=== PATIENT | male | born 1980 | race Caucasian/White ===

== ENCOUNTER 2016-05-30 13:56 | Emergency (ER) | payer BC ==
[~2016-05-30] VITALS: Ht 175.3 cm; Wt 180.0 kg
[2016-05-30 13:58] VITALS: BP 135/84; PULSE 102; RESP 15; TEMP 98.2; O2SAT 98
[2016-05-30] MEDS ORDERED: XANA0.5T2 PO (14:15)
[2016-05-30] MEDS ORDERED: LACTCAP8 PO (14:15)
[2016-05-30] MEDS ORDERED: WELL200T PO (14:15)
[2016-05-30] MEDS ORDERED: SODIUM CHLOR 0.9% 1000 ML INJ 1,000 ML IV SCH (14:34)
[2016-05-30] MEDS ORDERED: ONDANSETRON HCL 4 MG/2 ML VIAL IV PUSH ONE ×2 (15:00→16:15)
[2016-05-30] MEDS ORDERED: MORPHINE SULFATE 4 MG/ML INJ IV PUSH ONE (15:00)
[2016-05-30 15:04] LABS: AUTOMATED NEUTROPHIL # 4.4 TH/MM3 (1.8-7.7); BASOPHIL # 0.1 TH/MM3 (0-0.2); BASOPHIL % 1.3 % (0.0-2.0); EOSINOPHIL # 0.2 TH/MM3 (0-0.4); EOSINOPHIL % 2.8 % (0.0-4.0); HEMATOCRIT 44.6 % (39.0-51.0); HEMO FLAGS DIFF FINAL; LYMPH % 26.7 % (9.0-44.0); LYMPHOCYTE # 1.9 TH/MM3 (1.0-4.8); MEAN CELL VOLUME 87.3 FL (80.0-100.0); MEAN CORPUSCULAR HEMOGLOBIN 29.6 PG (27.0-34.0); MEAN CORPUSCULAR HGB CONC 33.9 % (32.0-36.0); MONO % 8.1 % (0.0-8.0); NEUT % 61.1 % (16.0-70.0); PLATELET COUNT 285 TH/MM3 (150-450); RED BLOOD COUNT 5.11 MIL/MM3 (4.50-5.90); RED CELL DISTRIBUTION WIDTH 13.9 % (11.6-17.2); WHITE BLOOD COUNT 7.2 TH/MM3 (4.0-11.0)
[2016-05-30 15:07] VITALS: BP 130/71; PULSE 87; RESP 18; O2SAT 100
[2016-05-30 15:25] LABS: BLOOD, URINE MOD (NEG); COMMENT (UR) CULT NOT INDICATED; CULTURE IF INDICATED CULT NOT INDICATED; GLUCOSE,URINE NEG (NEG); KETONE, URINE NEG (NEG); MUCUS URINE FEW /lpf (OCC); NITRITE,URINE NEG (NEG); PH, URINE 6.5 (5.0-8.5); URINE COLOR YELLOW (YELLW/STRAW)
--- NOTE | 2016-05-30 15:40 | PD ---
HPI Chief Complaint: GI Complaint Time Seen by Provider: 15:36 Travel History International Travel<30 days: No Contact w/Intl Traveler<30days: No Traveled to known affect area: No History of Present Illness HPI 36-year-old male that presents to the ED for evaluation of left flank pain. Patient has had this for since this morning. Patient had some diarrhea this morning about 3 bowel movements of it however liquidy with no urinary symptoms and he had pain at the time but after a while he started developing this debilitating left flank pain. He denies any history of kidney stones. He denies any surgeries to his abdomen. He does state that he has a week pelvic floor and he has trouble getting urine going. Per patient he has no history of diabetes but he does have a history of anxiety and depression. He states that his pain is 7 out of 10. Allergies to amoxicillin. No chest or shortness of breath. No numbness, tilling, weakness. Per patient the pain is burning and constant. Does not radiate. States mainly in that area. He denies ever having like this before. No nausea or vomiting although he does tell me that he dry heaved a couple times but he couldn't get anything out to symmetrical help with his pain. He has not taken anything for this. He has not seen anybody for this. No fevers chills or sweats. No new foods. No recent travel. PFSH Past Medical History Medical other: Yes (hemmproids) Social History Alcohol Use: No Tobacco Use: No Allergies-Medications (Allergen,Severity, Reaction): Coded Allergies: Amoxicillin (Verified Allergy, Mild, Rash, 05/30/16) Reported Meds & Prescriptions Reported Meds & Active Scripts Active Reported Probiotic (Lactobacillus Acidophilus) 1 Cap Cap 1 Cap PO TIDAC Xanax Xr 24 HR (Alprazolam) 0.5 Mg Tab 0.5 Mg PO DAILY Take tablet intact, preferably in the morning. Wellbutrin SR 12 HR (Bupropion HCl) 200 Mg Tab 300 Mg PO DAILY Review of Systems Except as stated in HPI: all other systems reviewed are Neg Physical Exam Narrative GENERAL: SKIN: Warm and dry. HEAD: Atraumatic. Normocephalic. EYES: Pupils equal and round. No scleral icterus. No injection or drainage. ENT: No nasal bleeding or discharge. Mucous membranes pink and moist. NECK: Trachea midline. No JVD. CARDIOVASCULAR: Regular rate and rhythm. RESPIRATORY: No accessory muscle use. Clear to auscultation. Breath sounds equal bilaterally. GASTROINTESTINAL: Abdomen soft, non-tender, nondistended. Hepatic and splenic margins not palpable. No obvious CVA tenderness. MUSCULOSKELETAL: Extremities without clubbing, cyanosis, or edema. No obvious deformities. Full range of motion of the upper and lower extremities bilaterally. 2+ pulses bilaterally. NEUROLOGICAL: Awake and alert. No obvious cranial nerve deficits. Motor grossly within normal limits. Five out of 5 muscle strength in the arms and legs. Normal speech. PSYCHIATRIC: Appropriate mood and affect; insight and judgment normal. Data Data Last Documented VS Vital Signs Date Time Temp Pulse Resp B/P Pulse Ox O2 Delivery O2 Flow Rate FiO2 05/30/16 16:18 84 18 118/59 100 Room Air 05/30/16 13:58 98.2 Orders Complete Blood Count With Diff (05/30/16 14:34) Comprehensive Metabolic Panel (05/30/16 14:34) Lipase (05/30/16 14:34) Lactic Acid (05/30/16 14:34) Urinalysis - C+S If Indicated (05/30/16 14:34) Iv Access Insert/Monitor (05/30/16 14:34) NPO (05/30/16 14:34) Sodium Chlor 0.9% 1000 Ml Inj (Ns 1000 M (05/30/16 14:34) Morphine Inj (Morphine Inj) (05/30/16 15:00) Ondansetron Inj (Zofran Inj) (05/30/16 15:00) Ct Abd/Pel W Iv Contrast(Rout) (05/30/16 ) Iohexol 350 Inj (Omnipaque 350 Inj) (05/30/16 15:49) Hydromorphone Pf Inj (Dilaudid Pf Inj) (05/30/16 16:15) Ondansetron Inj (Zofran Inj) (05/30/16 16:15) Ketorolac Inj (Toradol Inj) (05/30/16 16:15) Labs Laboratory Tests Test 05/30/16 14:45 White Blood Count 7.2 TH/MM3 Red Blood Count 5.11 MIL/MM3 Hemoglobin 15.1 GM/DL Hematocrit 44.6 % Mean Corpuscular Volume 87.3 FL Mean Corpuscular Hemoglobin 29.6 PG Mean Corpuscular Hemoglobin 33.9 % Concent Red Cell Distribution Width 13.9 % Platelet Count 285 TH/MM3 Mean Platelet Volume 9.2 FL Neutrophils (%) (Auto) 61.1 % Lymphocytes (%) (Auto) 26.7 % Monocytes (%) (Auto) 8.1 % Eosinophils (%) (Auto) 2.8 % Basophils (%) (Auto) 1.3 % Neutrophils # (Auto) 4.4 TH/MM3 Lymphocytes # (Auto) 1.9 TH/MM3 Monocytes # (Auto) 0.6 TH/MM3 Eosinophils # (Auto) 0.2 TH/MM3 Basophils # (Auto) 0.1 TH/MM3 CBC Comment DIFF FINAL Differential Comment Urine Color YELLOW Urine Turbidity CLEAR Urine pH 6.5 Urine Specific Wallace 1.015 Urine Protein NEG mg/dL Urine Glucose (UA) NEG mg/dL Urine Ketones NEG mg/dL Urine Occult Blood MOD Urine Nitrite NEG Urine Bilirubin NEG Urine Urobilinogen LESS THAN 2.0 MG/DL Urine Leukocyte Esterase NEG Urine RBC 15 /hpf Urine WBC 1 /hpf Urine Mucus FEW /lpf Microscopic Urinalysis Comment CULT NOT INDICATED Sodium Level 140 MEQ/L Potassium Level 4.4 MEQ/L Chloride Level 105 MEQ/L Carbon Dioxide Level 27.6 MEQ/L Anion Gap 7 MEQ/L Blood Urea Nitrogen 14 MG/DL Creatinine 0.94 MG/DL Estimat Glomerular Filtration 92 ML/MIN Rate Random Glucose 101 MG/DL Lactic Acid Level 1.2 mmol/L Calcium Level 9.1 MG/DL Total Bilirubin 0.4 MG/DL Aspartate Amino Transf 17 U/L (AST/SGOT) Alanine Aminotransferase 32 U/L (ALT/SGPT) Alkaline Phosphatase 64 U/L Total Protein 7.0 GM/DL Albumin 3.8 GM/DL Lipase 98 U/L [facility] Medical Decision Making Medical Screen Exam Complete: Yes Emergency Medical Condition: Yes Medical Record Reviewed: Yes Interpretation(s) CBC & BMP Diagram 05/30/16 14:45 CT of abdomen showed possible stone on left UVJ UA shows blood LFTs and Lipase WNL Differential Diagnosis Flank pain versus renal colic versus diverticulitis versus gastritis versus gastroenteritis versus muscle strain versus hydronephrosis versus pyelonephritis versus diarrhea Narrative Course 36-year-old male that presents to the ED for evaluation of left flank pain. Patient was properly examined and was found to have signs and symptoms of unclear etiology at this time. Recommend labs and imaging. Patient was given IV pain medications as well as Zofran. Labs and imaging showed kidney stone. Patient was reassured. COunceled on expected course. Case discussed with Dr. Reyes who agrees with discharge and treatment plan. Patient will be given a prescription for Lortab, Zofran, Cipro, Flomax. Patient was told to follow up with PCP. See ED worsening symptoms. Drink plenty of fluids. Diagnosis Primary Impression: Urethral calculus Patient Instructions: General Instructions, Narcotic given in the ED Additional Instructions: Take medications as prescribed. Follow-up with PCP. See ED for any worsening symptoms. Do not drink or drive while taking pain medication. Apply ice or heat as needed for pain Med/Other Pt SpecificInfo: Prescription(s) given Scripts Ciprofloxacin (Cipro)500 Mg [id number] Mg PO BID 7 Days Ref 0 Prov:Maicol Reyes MD 05/30/16 Tamsulosin (Flomax)0.4 Mg Cap0.4 Mg PO HS #30 CAP Ref 0 Prov:Maicol Reyes MD 05/30/16 Ondansetron (Zofran)4 Mg Tab4 Mg PO Q6HR PRN (NAUSEA OR VOMITING) #20 TAB Prov:Maicol Reyes MD 05/30/16 Hydrocodone-Acetaminophen (Lortab)5-325 Mg Tab1 Tab PO Q6H PRN (PAIN) #20 TAB Prov:Maicol Reyes MD 05/30/16 Disposition: 01 DISCHARGE HOME Condition: Stable Johnny Suarez May 30, 2016 15:40
[2016-05-30 15:49] LABS: ALKALINE PHOSPHATASE 64 U/L (45-117); TOTAL BILIRUBIN ADULT 0.4 MG/DL (0.2-1.0)
[2016-05-30] MEDS ORDERED: IOHEXOL 350 MG/ML 10 ML VIAL (for RAD DIAG) IV ONE (15:49)
[2016-05-30 16:04] LABS: ALT (GPT) 32 U/L (12-78); ANION GAP 7 MEQ/L (5-15); AST (GOT) 17 U/L (15-37); BICARBONATE 27.6 MEQ/L (21.0-32.0); BLOOD UREA NITROGEN 14 MG/DL (7-18); CHLORIDE 105 MEQ/L (98-107); GLOMERULAR FILTRATION RATE 92 ML/MIN (>89); POTASSIUM 4.4 MEQ/L (3.5-5.1); SODIUM (NA) 140 MEQ/L (136-145)
[2016-05-30] MEDS ORDERED: KETOROLAC TROMETHAMINE 30 MG/ML (IVP) VIAL IV PUSH ONE (16:15)
[2016-05-30] MEDS ORDERED: HYDROmorphone HCL PF 1 MG/ML VIAL IV PUSH ONE (16:15)
[2016-05-30 16:18] VITALS: BP 118/59; PULSE 84; RESP 18; O2SAT 100
--- NOTE | 2016-05-30 16:21 | RADRPT ---
EXAM DATE/TIME: 05/30/2016 15:45 [place] COMPARISON: No previous studies available for comparison. INDICATIONS : Abdomen pain; nausea and vomiting. IV CONTRAST: 100 cc Omnipaque 350 (iohexol) IV ORAL CONTRAST: No oral contrast ingested. RADIATION DOSE: 16.49 CTDIvol (mGy) MEDICAL HISTORY : None SURGICAL HISTORY : None. ENCOUNTER: Initial ACUITY: 1 day PAIN SCALE: 6/10 LOCATION: Bilateral abdomen. TECHNIQUE: Volumetric scanning of the abdomen and pelvis was performed. Using automated exposure control and adjustment of the mA and/or kV according to patient size, radiation dose was kept as low as reasonably achievable to obtain optimal diagnostic quality images. FINDINGS: The lung bases are clear. The liver is free of focal defects. Spleen, pancreas, adrenal glands and kidneys are unremarkable. In the pelvis, there is a single stone at the left UPJ junction. There is no perinephric stranding a bout the kidney. Pelvic contents are otherwise unremarkable. CONCLUSION: 1. Calcification at the left UPJ junction. This could even be a recently passed stone. 2. No other abnormality is appreciated. Ney George MD FACR on May 30, 2016 at 16:11 Board Certified Radiologist. This report was verified electronically.
[2016-05-30] MEDS ORDERED: TAMS5CAP PO (16:49)
[2016-05-30] MEDS ORDERED: CIPR-9 PO (16:49)
[2016-05-30] MEDS ORDERED: HYDR-3533 PO (16:49)
[2016-05-30] MEDS ORDERED: ZOFR4TAB PO (16:49)
== END 2016-05-30 19:00 | disposition home or self-care (01) ==
LOC: NEPA 13:56
DX: N21.1 Calculus in urethra (principal); R19.7 Diarrhea, unspecified
CPT/HCPCS: 74177; 80053; 81001; 83605; 83690; 85025; 96374; 96375; 96376; 99284; J1170; J1885; J2270; J2405; J7030; Q9967